=== PATIENT | female | born 1945 | race African-American/Black ===

== ENCOUNTER 2018-09-20 09:12 | Inpatient (IN) | payer OTHER ==
[~2018-09-20] VITALS: Ht 160 cm; Wt 58.1 kg
[2018-09-20 09:52] LABS: HEMOGLOBIN. 13.9 g/dL (12.0-16.0); MEAN CORPUSCULAR HEMOGLOBIN 31.3 pg (28.0-32.0); MEAN CORPUSCULAR VOLUME 92.3 fL (81.0-99.0); MEAN PLATELET VOLUME 9.6 fl (7.4-10.4); PLATELET 188 x1000/uL (130-400); RED BLOOD CELL COUNT 4.45 mill/uL (4.2-5.4); RED CELL DISTRIBUTION WIDTH 15.4 % (11.6-14.6)
[2018-09-20 09:54] LABS: INR 1.2; PROTHROMBIN TIME 12.5 sec (9.6-11.0)
[2018-09-20 09:55] LABS: CHLORIDE 103 mEq/L (98-107)
[2018-09-20] MEDS ORDERED: SODIUM CHLORIDE 0.9% 1,000 ML IV ONE (10:07)
[2018-09-20 10:12] LABS: PLATELET ESTIMATE NORMAL
[2018-09-20 10:41] LABS: CLARITY URINE CLEAR (CLEAR); COLOR URINE YELLOW (YELLOW); KETONES URINE NEGATIVE (NEGATIVE); LEUKOCYTE ESTERASE URINE NEGATIVE (NEGATIVE); NITRITE URINE NEGATIVE (NEGATIVE); OCCULT BLOOD URINE NEGATIVE (NEGATIVE); PH URINE 5.5 (4.5-8.0); PROTEIN URINE NEGATIVE (NEGATIVE); SPECIFIC GRAVITY URINE 1.019 (1.005-1.030)
[2018-09-20] MEDS ORDERED: ASPIRIN 325MG EC TABLET PO ONE (11:30)
[2018-09-20 16:55] VITALS: BP 161/95
[2018-09-20] MEDS ORDERED: LISI10TA5 MT (17:23)
[2018-09-20] MEDS ORDERED: CLON0.5T23 MT (17:23)
[2018-09-20] MEDS ORDERED: WARF4TAB71 MT (17:23)
[2018-09-20] MEDS ORDERED: VENL37.586 MT (17:23)
[2018-09-20] MEDS ORDERED: DILT180C66 MT (17:23)
[2018-09-20] MEDS ORDERED: ATOR40TA70 MT (17:23)
[2018-09-20] MEDS ORDERED: OMEP20CA5 MT (17:23)
[2018-09-20] MEDS ORDERED: DIGO125T82 MT (17:23)
[2018-09-20] MEDS ORDERED: IPRATROPIUM/ALBUTEROL 0.5-3(2.5)MG/3ML NEB INH PRN (18:30)
[2018-09-20] MEDS ORDERED: GUAIFENESIN 200MG/10ML SUGAR FREE UDC PO PRN (18:30)
[2018-09-20] MEDS ORDERED: WARFARIN SODIUM 5MG TABLET PO ONE (18:30)
[2018-09-20] MEDS ORDERED: DIPHENHYDRAMINE 50MG/ML VIAL IV PRN (18:30)
[2018-09-20] MEDS ORDERED: LORAZEPAM 0.5MG TABLET PO PRN (18:30)
[2018-09-20] MEDS ORDERED: MAGNESIUM/ALUMINUM HYDROXIDE/SIMETHICONE 30ML UDC PO PRN (18:30)
[2018-09-20] MEDS ORDERED: ONDANSETRON HCL 4MG/2ML INJ IV PRN (18:30)
[2018-09-20] MEDS ORDERED: PNEUMOCOCCAL 23-VAL P-SAC VAC 0.5 ML IM ONE (18:30)
[2018-09-20 18:57] VITALS: BP 161/95
[2018-09-20] MEDS: HYDRALAZINE 20MG/ML VIAL IV PRN (19:13)
[2018-09-20] MEDS ORDERED: WARF6TAB48 PO (19:23)
[2018-09-20] MEDS ORDERED: WARF4TAB71 PO (19:23)
[2018-09-20] MEDS ORDERED: DIGO250T81 PO (19:23)
[2018-09-20 20:00] VITALS: BP 126/62
[2018-09-20] MEDS ORDERED: WARFARIN SODIUM 4MG TABLET PO NR (20:00)
[2018-09-20] MEDS: NICOTINE 14MG PATCH TD SCH (20:22)
[2018-09-20] MEDS: ATORVASTATIN CALCIUM 40MG TABLET PO SCH (20:23)
[2018-09-20] MEDS: OMEPRAZOLE 20MG CAPSULE EXTENDED RELEASE PO SCH (20:23)
[2018-09-20] MEDS: DIGOXIN 500MCG/2ML AMP IV SCH (20:28)
[2018-09-20] MEDS: DILTIAZEM HCL 60MG TABLET PO SCH (22:05)
[2018-09-20] MEDS: SODIUM CHLORIDE 0.9% INJ 3ML FLUSH IVF SCH (22:05)
[2018-09-20] MEDS: CLONAZEPAM 0.5MG TABLET PO SCH (22:05)
[2018-09-21] VITALS: BP 141/79
[2018-09-21 04:00] VITALS: BP 155/73
[2018-09-21] MEDS: SODIUM CHLORIDE 0.9% INJ 3ML FLUSH IVF SCH ×3 (06:07→22:00)
[2018-09-21] MEDS: DILTIAZEM HCL 60MG TABLET PO SCH ×3 (06:07→21:32)
[2018-09-21] MEDS: OMEPRAZOLE 20MG CAPSULE EXTENDED RELEASE PO SCH ×2 (06:07→21:32)
[2018-09-21] MEDS: CLONAZEPAM 0.5MG TABLET PO SCH ×3 (06:07→21:32)
[2018-09-21 08:00] VITALS: BP 121/68
[2018-09-21 08:09] LABS: INR 1.4; PROTHROMBIN TIME 13.8 sec (9.6-11.0)
[2018-09-21] MEDS ORDERED: DICL100G31 TP (09:10)
[2018-09-21] MEDS: NICOTINE 14MG PATCH TD SCH (09:48)
[2018-09-21] MEDS: LISINOPRIL 10MG TABLET PO SCH (09:49)
[2018-09-21 12:00] VITALS: BP 104/67
[2018-09-21 16:00] VITALS: BP 161/54
[2018-09-21] MEDS: ACETAMINOPHEN 325MG TABLET PO PRN ×2 (16:57→21:30)
[2018-09-21] MEDS: HYDRALAZINE 20MG/ML VIAL IV PRN (16:57)
[2018-09-21] MEDS ORDERED: WARFARIN SODIUM 4MG TABLET PO NR (18:00)
[2018-09-21] MEDS: DIGOXIN 500MCG/2ML AMP IV SCH (18:19)
[2018-09-21 20:00] VITALS: BP 137/78
[2018-09-21] MEDS: ATORVASTATIN CALCIUM 40MG TABLET PO SCH (21:30)
[2018-09-22] VITALS (10 sets, daily range): BP systolic 98–159; BP diastolic 59–99
[2018-09-22] MEDS: SODIUM CHLORIDE 0.9% INJ 3ML FLUSH IVF SCH ×3 (06:55→21:14)
[2018-09-22] MEDS: OMEPRAZOLE 20MG CAPSULE EXTENDED RELEASE PO SCH (06:55)
[2018-09-22] MEDS: CLONAZEPAM 0.5MG TABLET PO SCH ×3 (06:55→21:15)
[2018-09-22] MEDS: DILTIAZEM HCL 60MG TABLET PO SCH ×3 (06:55→21:15)
[2018-09-22 07:26] LABS: BASOPHILS % 1.4 % (0.0-2.0); EOSINOPHILS % 0.3 % (0.0-5.0); HEMATOCRIT. 36.2 % (36.0-48.0); HEMOGLOBIN. 12.5 g/dL (12.0-16.0); LYMPHOCYTES % 22.5 % (20.0-50.0); MEAN CORPUSCULAR HEMOGLOBIN 31.7 pg (28.0-32.0); MEAN CORPUSCULAR VOLUME 91.8 fL (81.0-99.0); MEAN PLATELET VOLUME 9.6 fl (7.4-10.4); MONOCYTES % 12.1 % (2.0-8.0); NEUTROPHILS % 63.7 % (40.0-76.0); PLATELET 168 x1000/uL (130-400); RED BLOOD CELL COUNT 3.95 mill/uL (4.2-5.4)
[2018-09-22 07:28] LABS: INR 1.6; PROTHROMBIN TIME 16.3 sec (9.6-11.0)
[2018-09-22 07:41] LABS: CHLORIDE 106 mEq/L (98-107)
[2018-09-22] MEDS: LISINOPRIL 10MG TABLET PO SCH (08:41)
[2018-09-22] MEDS: NICOTINE 14MG PATCH TD SCH (08:50)
[2018-09-22] MEDS: ACETAMINOPHEN 325MG TABLET PO PRN ×3 (08:56→21:14)
[2018-09-22] MEDS: DIGOXIN 500MCG/2ML AMP IV SCH (17:48)
[2018-09-22] MEDS ORDERED: WARFARIN SODIUM 4MG TABLET PO NR (18:00)
[2018-09-22] MEDS: ATORVASTATIN CALCIUM 40MG TABLET PO SCH (21:14)
[2018-09-23] MEDS ORDERED: FAMOTIDINE 20MG TABLET PO SCH (09:00)
== END 2018-09-22 23:42 | disposition short-term general hospital (02) | DRG 310 ==
LOC: ER 09:48 → 5WST 12:17 → EDBEDREQTM 12:20 → EDBEDREQ 12:20 → ENRESERV 13:57
PROVIDERS: ADMIT Internal Medicine; ATTEND Internal Medicine
DX: I48.91 Unspecified atrial fibrillation (principal); I10 Essential (primary) hypertension; I25.10 Atherosclerotic heart disease of native coronary artery without angina pectoris; G24.01 Drug induced subacute dyskinesia; I71.2 Thoracic aortic aneurysm, without rupture; R79.89 Other specified abnormal findings of blood chemistry; R50.9 Fever, unspecified; F17.200 Nicotine dependence, unspecified, uncomplicated; T50.995A Adverse effect of other drugs, medicaments and biological substances, initial encounter; Y92.89 Other specified places as the place of occurrence of the external cause; Z90.81 Acquired absence of spleen; Z95.1 Presence of aortocoronary bypass graft; Z86.73 Personal history of transient ischemic attack (TIA), and cerebral infarction without residual deficits; Z90.49 Acquired absence of other specified parts of digestive tract; Z79.899 Other long term (current) drug therapy; Z79.01 Long term (current) use of anticoagulants; Z71.6 Tobacco abuse counseling; Z90.411 Acquired partial absence of pancreas
CPT/HCPCS: 36415; 71045; 74176; 80048; 83605; 84145; 84484; 90732; 93005; 96374; 99285; J0360; J1160; J7030

== ENCOUNTER 2018-10-21 09:49 | Emergency (ER) | payer OTHER ==
[~2018-10-21] VITALS: Ht 167.6 cm; Wt 75.0 kg
[~2018-10-21 09:49] MED LIST: ATOR40TA70 MT; CLON0.5T23 MT; DICL100G31 TP; DIGO250T81 PO; DILT180C66 MT; LISI10TA5 MT; OMEP20CA5 MT; VENL37.586 MT; WARF4TAB71 PO; WARF6TAB48 PO
[2018-10-21 11:04] LABS: BASOPHILS % 2.3 % (0.0-2.0); EOSINOPHILS % 0.1 % (0.0-5.0); HEMATOCRIT. 34.7 % (36.0-48.0); LYMPHOCYTES % 34.7 % (20.0-50.0); MEAN CORPUSCULAR HEMOGLOBIN 32.1 pg (28.0-32.0); MEAN CORPUSCULAR VOLUME 92.5 fL (81.0-99.0); MEAN PLATELET VOLUME 8.3 fl (7.4-10.4); MONOCYTES % 7.7 % (2.0-8.0); NEUTROPHILS % 55.2 % (40.0-76.0); PLATELET 154 x1000/uL (130-400); RED BLOOD CELL COUNT 3.75 mill/uL (4.2-5.4); RED CELL DISTRIBUTION WIDTH 15.6 % (11.6-14.6)
[2018-10-21 11:11] LABS: CHLORIDE 101 mEq/L (98-107)
[2018-10-21] MEDS ORDERED: HYDRALAZINE 20MG/ML VIAL IV ONE (11:45)
[2018-10-21] MEDS ORDERED: DIAZEPAM 5 MG TABLET PO STA (11:46)
[2018-10-21] MEDS ORDERED: DILTIAZEM HCL 5MG/ML 5ML VIAL IV ONE (12:15)
[2018-10-21 14:13] LABS: PROTHROMBIN TIME 10.6 sec (9.6-11.0)
[2018-10-21 15:43] VITALS: BP 115/63
== END 2018-10-21 15:50 | disposition short-term general hospital (02) ==
LOC: ER 09:49
DX: I47.1 Supraventricular tachycardia (principal); G24.01 Drug induced subacute dyskinesia
CPT/HCPCS: 36415; 71045; 80053; 83880; 84484; 85025; 85610; 93005; 96374; 96375; 99291; J0360; J3490

== ENCOUNTER 2019-03-28 18:20 | Emergency (ER) | payer OTHER, MEDICAID ==
[~2019-03-28] VITALS: Ht 167.6 cm; Wt 58.0 kg
[~2019-03-28 18:20] MED LIST changes: +DIGO250T79 PO; -DIGO250T81 PO; +OMEP20CA14 MT; -OMEP20CA5 MT
[2019-03-28] MEDS ORDERED: MORPHINE SULFATE 4 MG/ML CPJ (NOT FOR IM USE) IV STA (19:06)
[2019-03-28] MEDS ORDERED: SODIUM CHLORIDE 0.9% 1,000 ML IV ONE (19:06)
[2019-03-28] MEDS ORDERED: ONDANSETRON HCL 4MG/2ML INJ IV STA (19:06)
[2019-03-28 19:23] LABS: CHLORIDE 100 mEq/L (98-107)
[2019-03-28 19:27] LABS: BASOPHILS % 1.4 % (0.0-2.0); EOSINOPHILS % 0.1 % (0.0-5.0); HEMATOCRIT. 40.9 % (36.0-48.0); HEMOGLOBIN. 13.6 g/dL (12.0-16.0); LYMPHOCYTES % 27.5 % (20.0-50.0); MEAN CORPUSCULAR HEMOGLOBIN 31.2 pg (28.0-32.0); MEAN PLATELET VOLUME 10.5 fl (7.4-10.4); PLATELET 183 x1000/uL (130-400); RED BLOOD CELL COUNT 4.35 mill/uL (4.2-5.4)
[2019-03-28 19:41] LABS: INR 1.5; PARTIAL THROMBOPLASTIN TIME 29.9 sec (23.4-31.0); PROTHROMBIN TIME 15.4 sec (9.6-11.0)
[2019-03-28 19:45] LABS: DIGOXIN 0.4 ng/mL (0.9-2.0)
[2019-03-28] MEDS ORDERED: IOHEXOL-350 100 ML BOTTLE ONE (23:02)
[2019-03-28] MEDS ORDERED: ESMOLOL 2500MG PREMIX 250 ML IV ONE ×2 (23:15→23:30)
[2019-03-29] MEDS ORDERED: MORPHINE SULFATE 4 MG/ML CPJ (NOT FOR IM USE) IV ONE ×2 (01:00→03:15)
[2019-03-29] MEDS ORDERED: LABETALOL HCL 20MG/4ML CARPUJECT IV ONE (03:15)
[2019-03-29 06:56] VITALS: BP 146/90
== END 2019-03-29 07:03 | disposition short-term general hospital (02) ==
LOC: ER 18:20
DX: I71.4 Abdominal aortic aneurysm, without rupture (principal); I16.1 Hypertensive emergency; Z88.0 Allergy status to penicillin; Z79.01 Long term (current) use of anticoagulants; Z79.899 Other long term (current) drug therapy; Z86.73 Personal history of transient ischemic attack (TIA), and cerebral infarction without residual deficits
CPT/HCPCS: 36415; 70450; 71045; 74174; 74176; 80053; 80162; 82140; 83690; 83880; 84484; 85025; 85610; 85730; 93005; 96361; 96365; 96366; 96375; 96376; 99285; J2270; J2405; J3490; J7030; Q9967

== ENCOUNTER 2019-09-09 03:11 | Emergency (ER) | payer OTHER, MEDICAID ==
[~2019-09-09] VITALS: Ht 162.6 cm; Wt 65.0 kg
[2019-09-09 05:02] LABS: BASOPHILS % 0.7 % (0.0-2.0); EOSINOPHILS % 0.1 % (0.0-5.0); LYMPHOCYTES % 18.6 % (20.0-50.0); MEAN CORPUSCULAR VOLUME 99.8 fL (81.0-99.0); MEAN PLATELET VOLUME 9.5 fl (7.4-10.4); MONOCYTES % 6.3 % (2.0-8.0); NEUTROPHILS % 74.3 % (40.0-76.0); PLATELET 121 x1000/uL (130-400); RED BLOOD CELL COUNT 1.49 mill/uL (4.2-5.4); RED CELL DISTRIBUTION WIDTH 17.6 % (11.6-14.6)
[2019-09-09 05:06] LABS: CHLORIDE 109 mEq/L (98-107)
[2019-09-09 05:12] LABS: HEMATOCRIT. 14.9 % (36.0-48.0); HEMOGLOBIN. 4.9 g/dL (12.0-16.0)
[2019-09-09] MEDS ORDERED: PANTOPRAZOLE SODIUM 40 MG/VIAL IV NR (06:00)
[2019-09-09] MEDS ORDERED: IOHEXOL-300 100 ML BOTTLE ONE (07:44)
[2019-09-09 10:17] LABS: CLARITY URINE CLEAR (CLEAR); COLOR URINE YELLOW (YELLOW); KETONES URINE NEGATIVE (NEGATIVE); LEUKOCYTE ESTERASE URINE NEGATIVE (NEGATIVE); NITRITE URINE NEGATIVE (NEGATIVE); OCCULT BLOOD URINE NEGATIVE (NEGATIVE); PROTEIN URINE NEGATIVE (NEGATIVE); SPECIFIC GRAVITY URINE 1.049 (1.005-1.030); UROBILINOGEN URINE 0.2 E.U./dL (0.2-1.0)
[2019-09-09 11:15] VITALS: BP 107/64
== END 2019-09-09 11:40 | disposition left against medical advice (07) ==
LOC: ER 03:11 → SUPCPDRO 11:22 → ER 11:40 → CANBEDREQ 14:14
DX: R10.84 Generalized abdominal pain (principal); D64.9 Anemia, unspecified; I10 Essential (primary) hypertension; I63.9 Cerebral infarction, unspecified; J45.909 Unspecified asthma, uncomplicated; Z88.0 Allergy status to penicillin; Z98.890 Other specified postprocedural states
CPT/HCPCS: 36415; 71045; 74177; 80053; 81003; 83690; 85025; 86850; 86900; 86901; 86920; 93005; 99285; C9113; Q9967; P9016

== ENCOUNTER 2021-03-26 09:53 | Emergency (ER) | payer OTHER, MEDICAID ==
[~2021-03-26] VITALS: Ht 172.7 cm; Wt 50.0 kg
[~2021-03-26 09:53] MED LIST changes: +LISI10TA26 MT; -LISI10TA5 MT
[2021-03-26 10:01] VITALS: BP 137/80
[2021-03-26 13:35] LABS: BASOPHILS % 1.4 % (0.0-2.0); EOSINOPHILS % 0.8 % (0.0-5.0); HEMATOCRIT. 31.5 % (36.0-48.0); HEMOGLOBIN. 10.4 g/dL (12.0-16.0); LYMPHOCYTES % 27.2 % (20.0-50.0); MEAN CORPUSCULAR HEMOGLOBIN 30.1 pg (28.0-32.0); MEAN CORPUSCULAR VOLUME 91.1 fL (81.0-99.0); MEAN PLATELET VOLUME 9.4 fl (7.4-10.4); MONOCYTES % 10.2 % (2.0-8.0); NEUTROPHILS % 60.4 % (40.0-76.0); PLATELET 152 x1000/uL (130-400); RED BLOOD CELL COUNT 3.45 mill/uL (4.2-5.4); RED CELL DISTRIBUTION WIDTH 19.3 % (11.6-14.6)
[2021-03-26 13:37] LABS: CHLORIDE 108 mEq/L (98-107)
[2021-03-26] MEDS ORDERED: POTASSIUM CHLORIDE 20MEQ TABLET SR PO ONE (15:00)
[2021-03-26 15:41] LABS: INR 1.2; PROTHROMBIN TIME 12.3 sec (9.6-11.0)
[2021-03-26] MEDS ORDERED: POTA-79 MT (16:39)
== END 2021-03-26 19:14 | disposition home or self-care (01) ==
LOC: ER 10:31
DX: G24.01 Drug induced subacute dyskinesia (principal); E87.6 Hypokalemia; E87.8 Other disorders of electrolyte and fluid balance, not elsewhere classified; I10 Essential (primary) hypertension; E11.9 Type 2 diabetes mellitus without complications; J45.909 Unspecified asthma, uncomplicated; Z88.0 Allergy status to penicillin; Z79.899 Other long term (current) drug therapy; Z79.01 Long term (current) use of anticoagulants
CPT/HCPCS: 36415; 80053; 80162; 85025; 93005; 99284

== ENCOUNTER 2021-04-16 18:53 | Emergency (ER) | payer OTHER, MEDICAID ==
[~2021-04-16] VITALS: Ht 162.6 cm; Wt 64.0 kg
[~2021-04-16 18:53] MED LIST changes: +POTA-79 MT
[2021-04-16] MEDS ORDERED: DIPHENHYDRAMINE 50MG/ML VIAL IM STA (19:18)
[2021-04-16] MEDS ORDERED: BENZTROPINE MESYLATE 1 MG/ML 2ML VIAL IV ONE (21:15)
[2021-04-16 22:30] VITALS: BP 99/48
== END 2021-04-16 22:45 | disposition home or self-care (01) ==
LOC: ER 19:19
DX: G93.40 Encephalopathy, unspecified (principal); G24.01 Drug induced subacute dyskinesia; I10 Essential (primary) hypertension
CPT/HCPCS: 82962; 96372; 99283; J0515; J1200

== ENCOUNTER 2022-02-01 08:11 | Emergency (ER) | payer OTHER, MEDICAID ==
[~2022-02-01] VITALS: Ht 167.6 cm; Wt 73.0 kg
[2022-02-01] MEDS ORDERED: HYDROCODONE/ACETAMINOPHEN 5/325MG TABLET PO ONE (09:00)
[2022-02-01] MEDS ORDERED: TOPUD MT (13:18)
[2022-02-01 14:09] VITALS: BP 160/98
== END 2022-02-01 15:24 | disposition home or self-care (01) ==
LOC: ER 08:11
DX: S40.011A Contusion of right shoulder, initial encounter (principal); S00.83XA Contusion of other part of head, initial encounter; W01.0XXA Fall on same level from slipping, tripping and stumbling without subsequent striking against object, initial encounter; Y93.89 Activity, other specified; Y92.89 Other specified places as the place of occurrence of the external cause; I10 Essential (primary) hypertension; G40.909 Epilepsy, unspecified, not intractable, without status epilepticus; J44.9 Chronic obstructive pulmonary disease, unspecified; G24.01 Drug induced subacute dyskinesia; Z79.899 Other long term (current) drug therapy
CPT/HCPCS: 70486; 72170; 73030; 99284

== ENCOUNTER 2022-06-15 18:00 | Inpatient (IN) | payer OTHER, MEDICAID ==
[~2022-06-15] VITALS: Ht 160 cm; Wt 70.4 kg
[~2022-06-15 18:00] MED LIST changes: +TOPUD MT
[2022-06-15 18:25] LABS: BASOPHILS % 1.4 % (0.0-2.0); EOSINOPHILS % 1.5 % (0.0-5.0); HEMATOCRIT. 34.7 % (36.0-48.0); HEMOGLOBIN. 11.7 g/dL (12.0-16.0); LYMPHOCYTES % 33.6 % (20.0-50.0); MEAN CORPUSCULAR HEMOGLOBIN 30.2 pg (28.0-32.0); MEAN CORPUSCULAR VOLUME 89.8 fL (81.0-99.0); MEAN PLATELET VOLUME 9.7 fl (7.4-10.4); MONOCYTES % 11.5 % (2.0-8.0); PLATELET 106 x1000/uL (130-400); RED BLOOD CELL COUNT 3.87 mill/uL (4.2-5.4); RED CELL DISTRIBUTION WIDTH 16.6 % (11.6-14.6)
[2022-06-15 18:34] LABS: INR 1.1; PROTHROMBIN TIME 12.1 sec (9.6-11.0)
[2022-06-15 18:54] LABS: CLARITY URINE CLEAR (CLEAR); COLOR URINE YELLOW (YELLOW); KETONES URINE NEGATIVE (NEGATIVE); LEUKOCYTE ESTERASE URINE NEGATIVE (NEGATIVE); NITRITE URINE NEGATIVE (NEGATIVE); OCCULT BLOOD URINE NEGATIVE (NEGATIVE); PROTEIN URINE NEGATIVE (NEGATIVE); SPECIFIC GRAVITY URINE 1.017 (1.005-1.030); UROBILINOGEN URINE 0.2 E.U./dL (0.2-1.0)
[2022-06-15 19:01] LABS: CHLORIDE 109 mEq/L (98-107)
[2022-06-16] MEDS ORDERED: IPRATROPIUM/ALBUTEROL 0.5-3(2.5)MG/3ML NEB HHN PRN ×2 (03:45→07:45)
[2022-06-16] MEDS ORDERED: POTASSIUM CHLORIDE 20MEQ TABLET SR PO NR (03:45)
[2022-06-16] MEDS ORDERED: HYDROCODONE/ACETAMINOPHEN 5/325MG TABLET PO PRN (03:45)
[2022-06-16] MEDS: AMLODIPINE 5MG TABLET PO SCH ×3 (03:56→16:49)
[2022-06-16] MEDS ORDERED: NALOXONE HCL 0.4MG/ML VIAL IV PRN (04:45)
[2022-06-16] MEDS ORDERED: HYDRALAZINE 20MG/ML VIAL IV NR (05:00)
[2022-06-16] MEDS ORDERED: ACETAMINOPHEN 325MG TABLET PO PRN (07:45)
[2022-06-16] MEDS ORDERED: CLONIDINE 0.1MG TABLET PO PRN (07:45)
[2022-06-16] MEDS ORDERED: ONDANSETRON HCL 4MG/2ML INJ IV PRN (07:45)
[2022-06-16 08:30] VITALS: BP 143/89
[2022-06-16] MEDS: ENOXAPARIN 40MG/0.4ML SYR SUBCUT SCH (09:21)
[2022-06-16] MEDS ORDERED: APIX2.5T MT (09:42)
[2022-06-16] MEDS ORDERED: CARV6.2548 MT (09:42)
[2022-06-16] MEDS ORDERED: CLON1TAB23 MT (09:42)
[2022-06-16] MEDS ORDERED: AMIO100T4 PO (09:42)
[2022-06-16] MEDS ORDERED: AMLO10TA80 MT (09:43)
[2022-06-16] MEDS ORDERED: AMAN100C18 MT (09:47)
[2022-06-16] MEDS ORDERED: TAMS-11 MT (09:47)
[2022-06-16] MEDS ORDERED: LEVE500T98 MT (09:47)
[2022-06-16] MEDS ORDERED: DONE-51 MT (09:47)
[2022-06-16] MEDS ORDERED: MIRT-89 MT (09:47)
[2022-06-16] MEDS ORDERED: LEVO25TA7 MT (09:47)
[2022-06-16] MEDS ORDERED: FUROSEMIDE 20MG/2ML VIAL IVP NR (10:15)
[2022-06-16 12:25] VITALS: BP 135/77
[2022-06-16 16:00] VITALS: BP 160/76
[2022-06-16 17:05] LABS: CREATINE KINASE MB FRACTION 2.2 ng/mL (0.5-3.6)
[2022-06-16 17:18] LABS: HEPATITIS B SURFACE ANTIGEN NEGATIVE
[2022-06-16 20:00] VITALS: BP 135/78
[2022-06-16] MEDS: CARVEDILOL 6.25 MG TABLET PO SCH (21:30)
[2022-06-17] VITALS: BP 102/63
[2022-06-17 00:33] LABS: CREATINE KINASE MB FRACTION 1.7 ng/mL (0.5-3.6)
[2022-06-17 04:00] VITALS: BP 143/95
[2022-06-17 07:34] LABS: BASOPHILS % 0.2 % (0.0-2.0); EOSINOPHILS % 1.1 % (0.0-5.0); HEMATOCRIT. 34.1 % (36.0-48.0); HEMOGLOBIN. 11.7 g/dL (12.0-16.0); LYMPHOCYTES % 33.5 % (20.0-50.0); MEAN CORPUSCULAR HEMOGLOBIN 30.7 pg (28.0-32.0); MEAN CORPUSCULAR VOLUME 89.5 fL (81.0-99.0); MEAN PLATELET VOLUME 10.8 fl (7.4-10.4); MONOCYTES % 12.8 % (2.0-8.0); NEUTROPHILS % 52.4 % (40.0-76.0); PLATELET 117 x1000/uL (130-400); RED BLOOD CELL COUNT 3.81 mill/uL (4.2-5.4)
[2022-06-17 08:00] VITALS: BP 121/58
[2022-06-17 08:57] LABS: CHLORIDE 104 mEq/L (98-107)
[2022-06-17] MEDS: ENOXAPARIN 40MG/0.4ML SYR SUBCUT SCH (08:59)
[2022-06-17] MEDS ORDERED: POTASSIUM CHLORIDE 20MEQ TABLET SR PO NR ×2 (09:00→12:00)
[2022-06-17] MEDS ORDERED: AMLODIPINE 10MG TABLET PO SCH (09:00)
[2022-06-17] MEDS ORDERED: FUROSEMIDE 20MG/2ML VIAL IVP NR (09:00)
[2022-06-17] MEDS: CARVEDILOL 6.25 MG TABLET PO SCH (09:18)
[2022-06-17 12:00] VITALS: BP 127/54
[2022-06-17] MEDS ORDERED: FURO-152 MT (12:15)
[2022-06-17 12:20] VITALS: BP 127/54
== END 2022-06-17 15:10 | disposition home health service (06) | DRG 291 ==
LOC: ER 18:00 → MICUSO 06-16 02:37 → EDBEDREQ 06-16 02:39 → 7WST 06-16 08:27
PROVIDERS: ADMIT Internal Medicine; ATTEND Internal Medicine
DX: I11.0 Hypertensive heart disease with heart failure (principal); I50.43 Acute on chronic combined systolic (congestive) and diastolic (congestive) heart failure; I48.91 Unspecified atrial fibrillation; J44.9 Chronic obstructive pulmonary disease, unspecified; E87.6 Hypokalemia; R74.01 Elevation of levels of liver transaminase levels; F32.A Depression, unspecified; M19.90 Unspecified osteoarthritis, unspecified site; K21.9 Gastro-esophageal reflux disease without esophagitis; Z79.01 Long term (current) use of anticoagulants; Z86.73 Personal history of transient ischemic attack (TIA), and cerebral infarction without residual deficits; Z88.0 Allergy status to penicillin; Z79.899 Other long term (current) drug therapy
CPT/HCPCS: 36415; 71045; 76705; 80048; 80053; 81003; 82553; 83880; 84484; 85025; 86803; 87340; 93005; 93306; 93970; 97162; 99285; J0360; J1650; J1940